=== PATIENT | male | born 1970 | race Caucasian/White ===

== ENCOUNTER 2019-12-28 09:55 | Emergency (ER) | payer OTHER, SELFPAY | END 2019-12-28 10:30 | disposition home or self-care (01) | LOC: MADERS 09:55 | DX: K40.90 Unilateral inguinal hernia, without obstruction or gangrene, not specified as recurrent (principal); I10 Essential (primary) hypertension; Z87.891 Personal history of nicotine dependence; Z79.899 Other long term (current) drug therapy | CPT/HCPCS: 99283 ==